=== PATIENT | female | born 1950 ===

== ENCOUNTER 2025-11-11 10:46 | Outpatient (AMB) | payer MEDICARE, OTHER, SELFPAY ==
--- NOTE | 2025-11-11 10:51 | A.PHYSOV_ITS ---
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: No Allergies acetaminophen Allergy (Unknown, Verified 11/11/25 10:51) Unknown bacitracin (From Polysporin(bacitracin base)) Allergy (Unknown, Verified 11/11/25 10:51) Unknown latex Allergy (Unknown, Verified 11/11/25 10:51) Unknown mupirocin Allergy (Unknown, Verified 11/11/25 10:51) Unknown polymyxin B (From Polysporin(bacitracin base)) Allergy (Unknown, Verified 11/11/25 10:51) Unknown [facility] Medical History (Updated 11/11/25 @ 10:53 by Shane Fam DO) Lumbar radiculitis Surgical History (Updated 11/07/25 @ 13:34 by Mabel Martinez MA) History of tonsillectomy History of cancer surgery Social History (Updated 11/11/25 @ 10:52 by Mabel Martinez MA) Household Members: None Alcohol intake: current Alcohol intake frequency: holidays/special occasions only Patient Tobacco Use Status: Former Tobacco user service: No Current occupational status: retired Physical Exam Vital Signs: Last Vital Signs Temp 97.2 F 11/11/25 10:53 Pulse 59 11/11/25 10:53 BP 91/51 L 11/11/25 10:53 BMI result Body Mass Index 20.5 Office Procedures Procedure Details: Procedure performed: L5-S1 lumbar epidural steroid injection Preop diagnosis: Lumbar radiculitis Postop diagnosis: The same Anesthesia: Local After informed consent was obtained patient was brought into the procedure room and placed in the prone position on the procedure table. Skin over the lumbar sacral area was prepped and draped in usual sterile manner. L5-S1 interlaminar space was visualized utilizing fluoroscopy. After skin was anesthetized with 1% lidocaine solution, 3.5 in 20 gauge Toughy needle was introduced percutaneously and advanced toward the epidural space at the indicated level. Loss of resistance technique was utilized. Needle placement was verified utilizing 3 cc of Omnipaque contrast solution. Excellent epidural spread was visualized without evidence of vascular uptake. Total volume of 8 cc containing 2 cc of 1% lidocaine, 40 mg of triamcinolone and normal saline solution were injected after negative aspiration for blood and cerebrospinal fluid. Radiation exposure was documented in the chart. Lumbar Interlaminar Epidural 93619- use with FL Gd order: Lumbar Interlaminar Epidural Steroid Injection 29965 Procedure code (CPT) selection complete Office Meds Kenalog 40 mg/mL suspension for injection Performing Provider: Shane Fam DO Performing Location: [facility] Administered by: Shane Fam DO on 11/11/25 11:31 Dose Route Admin Location Dispensed Lot Number Expiration Date [facility] [employer] 40 mg epidural 1 mL [address]-9 [employer] Total Dispensed Waste 1 mL 0 % lidocaine (PF) 10 mg/mL (1 %) injection solution Performing Provider: Shane Fam DO Performing Location: [facility] Administered by: Shane Fam DO on 11/11/25 11:31 Dose Route Admin Location Dispensed Lot Number Expiration Date [facility] Social [employer] 50 mg epidural 5 mL 22198-470-90 [place] [place] [employer] Total Dispensed Waste 5 mL 0 % Omnipaque 300 300 mg iodine/mL intravenous solution Performing Provider: Shane Fam DO Performing Location: [facility] Administered by: Shane Fam DO on 11/11/25 11:31 Dose Route Admin Location Dispensed Lot Number Expiration Date [facility] Social [employer] 3 mL epidural 10 mL [id number] [employer] Total Dispensed Waste 10 mL 70 % Assessment & Plan Assessment & Plan (1) Lumbar radiculitis: Code(s): M54.16 - Radiculopathy, lumbar region Category: Medical Plan: Procedure Plan Procedure Orders: Orders [place] Gd L Spine Interlaminar Inj Today M54.16 - Radiculopathy, lumbar region AMB Lumbar Interlaminar Epidural Steroid Injection Today M54.16 - Radiculopathy, lumbar region Coding Level of Care Code Procedure Only Diagnoses Lumbar radiculitis M54.16 CPT Codes Lumbar Interlaminar Epidural Steroid I - 68206 - Lumbar Interlaminar Epidural: Lumbar Interlaminar Epidural Steroid Injection 62040 ([id number])
[2025-11-11 10:53] VITALS: BP 91/51; PULSE 59; TEMP 36.2; BMI 20.5
== END 2025-11-11 11:46 | disposition home or self-care (01) ==
LOC: HO.HPHYS 10:46
PROVIDERS: PCP Nurse Practitioner Acute Care; Visit Provider Physical Medicine & Rehabilitation
DX: M54.16 Radiculopathy, lumbar region (principal)
CPT/HCPCS: 62323

== ENCOUNTER 2025-11-11 10:46 | Outpatient (REF) | payer MEDICARE, OTHER, SELFPAY | END 2025-11-11 10:47 | disposition home or self-care (01) | LOC: HO.HPHYSR 10:46 | PROVIDERS: PCP Nurse Practitioner Acute Care; Visit Provider Physical Medicine & Rehabilitation | DX: M54.16 Radiculopathy, lumbar region (principal) | CPT/HCPCS: 62323; J2003; J3301; Q9967 ==